=== PATIENT | female | born 1995 ===

== ENCOUNTER → 2025-02-03 10:16 | Outpatient (REF) | payer BC, SELFPAY | LOC: HWRCS 10:16 | PROVIDERS: ATTENDING PHYSICIAN Student in an Organized Health Care Education/Training Program | DX: R00.2 Palpitations (principal) | CPT/HCPCS: 93306 ==

== ENCOUNTER 2025-05-31 09:20 | Outpatient (RCR) | payer BC, SELFPAY | END 2025-05-31 23:59 | disposition home or self-care (01) | LOC: RPT 09:20 | PROVIDERS: ATTENDING PHYSICIAN Physician Assistant Medical | DX: M54.50 Low back pain, unspecified (principal); Z73.6 Limitation of activities due to disability | CPT/HCPCS: 97110; 97112; 97162 ==